=== PATIENT | male | born 1985 | race Caucasian/White ===

== ENCOUNTER 2017-04-03 19:35 | Emergency (ER) | payer OTHER ==
[~2017-04-03] VITALS: Ht 185.4 cm; Wt 81.0 kg
[2017-04-03 19:50] VITALS: BP 128/81; PULSE 109; RESP 16; O2SAT 97
--- NOTE | 2017-04-03 20:01 | ED.REPORT ---
HPI-Psychiatric Illness Date of Service Apr 03, 2017 ED Provider: Damion Milian MD Pt is a 31 y/o male w/ no known past medical or psychiatric history history presenting to the ED due to auditory hallucinations which has been occurring for 5 years. He apparently does not have an official diagnosis of bipolar and apparently "schizophrenia was ruled out due to a normal brain scan". He previously took psych medications but chooses to not take them because of side effects. In the past he has tried Abilify, Geodon, Risperdal, Ritalin, and Adderall. He came in today because he was experiencing auditory hallucinations telling him "bad things" which have been occurring somewhat constantly each day. Pt denies any recent drug or alcohol use. He has had fleeting vague thoughts of suicide and believes he would be safe if he went home because he is around good people. He states that he has never attempted suicide nor does he have any plan to do this. His main goal today is to speak to a professional and obtain resources. He states that he shouldn't be admitted to the hospital but would like to meet with a counselor. Nursing Notes Stated Complaint: HALLUCINATIONS Chief Complaint: Psychiatric Complaint Nursing Notes Reviewed: Yes Allergies: Coded Allergies: risperidone (Verified Allergy, Severe, SI, uncomfortable in skin, lung infections, vomiting, 04/03/17) ziprasidone (Verified Allergy, Intermediate, had to will myself to breath , 04/03/17) General Time Seen by MD: 19:59 Chief Complaint Hallucinations, auditory Hx Obtained From: Patient Arrived By: Walk-in Onset Occurred: More than a week ago... (>6 months) Symptom Duration: Intermittent Progression Since Onset: Intermittent Severity: Current: No pain currently Severity: Maximum: No pain Similar Sx Previous: Yes Risk-Psychiatric Illness Suicide Risk Stratification RF Statements: Risk factors reviewed Past Medical History Past Medical History Unknown psych history Past Surgical History None reported Smoking History Unknown if Ever Smoker Social History Alcohol Use: Denies alcohol use Drug Use: Denies drug use Ambulatory Status Independent Review of Systems Psychiatric: Reports: Hallucinations, auditory, Stress, Suicidal ideation, Denies: Homicidal ideation Complete sys rev & neg: except as marked. Physical Exam Initial Vital Signs Vital Signs (First) Date Time Temp Pulse Resp B/P Pulse Ox O2 Delivery O2 Flow Rate FiO2 04/03/17 19:50 36.7 109 16 128/81 97 Room Air Initial VS: Reviewed Head / Eyes: Atraumatic, Normocephalic, PERRL ENT: Mucous membranes moist, Conjunctiva normal, No scleral icterus Neck: Supple, Full range of motion Respiratory: Breath sounds normal, Clear to auscultation, No respiratory distress Cardiovascular: Regular rate & rhythm, Heart sounds normal, Intact distal pulses Abdomen / GI: Soft, Non-tender Extremities: Vascular intact, Neuro intact, No swelling Skin: Warm, Dry, No cyanosis General/Constitutional: Awake, Alert, No acute distress, Well appearing, Cooperative, Not toxic appearing Appearance / Presentation: Positive: Hygiene poor Neurologic: Oriented X3, Speech NL, No motor deficits, Memory NL Psychiatric: Affect NL, Mood NL, Not suicidal, Not homicidal, No hallucinations Interpretation & Diagnostics Lab Results Interpretation Result Diagram: 04/03/17204904/03/172049 Test 04/03/17 20:50 04/03/17 20:57 White Blood Count 8.7th/mm3 (3.8-10.1) Red Blood Count 5.13mil/mm3 (4.40-5.80) Hemoglobin 16.4g/dL (13.8-17.2) Hematocrit 45.1% (41.0-50.0) Mean Corpuscular Volume 87.9fL (81-100) Mean Corpuscular Hemoglobin 32.0pg (27.0-35.0) Mean Corpuscular Hemoglobin Concent 36.4% (32.0-37.0) Red Cell Distribution Width 12.0% (12.3-15.4) Platelet Count 223bil/L (150-400) Neutrophils (%) (Auto) 49.9% (40-74) Lymphocytes (%) (Auto) 32.7% (14-46) Monocytes (%) (Auto) 9.7% (4-12) Eosinophils (%) (Auto) 6.7% (0-5) Basophils (%) (Auto) 0.9% (0-3) Sodium Level 139mEq/L (134-144) Potassium Level 4.0mEq/L (3.5-5.2) Chloride Level 100mEq/L (97-108) Carbon Dioxide Level 22mmol/L (18-29) Blood Urea Nitrogen 11mg/dL (6-20) Creatinine 1.06mg/dL (0.76-1.27) Estimat Glomerular Filtration Rate 87mL/min (>59) Glucose Level 128mg/dL (60-99) Calcium Level 9.5mg/dL (8.5-10.1) Total Bilirubin 0.7mg/dL (0.0-1.2) Aspartate Amino Transf (AST/SGOT) 17U/L (0-50) Alanine Aminotransferase (ALT/SGPT) 12U/L (0-44) Alkaline Phosphatase 63U/L (25-150) Total Protein 7.7g/dL (6.4-8.4) Albumin 4.8g/dL (3.4-5.0) Thyroid Stimulating Hormone (TSH) 0.935uIU/mL (0.450-4.500) Hold Kaur Top Tube Received (Received) Re-Eval/Medical Decision Med Decision/Clinical Course Pt is a 31 y/o male w/ no known past medical or psychiatric history history presenting to the ED due to auditory hallucinations which has been occurring for 5 years. He apparently does not have an official diagnosis of bipolar and apparently "schizophrenia was ruled out due to a normal brain scan". He previously took psych medications but chooses to not take them because of side effects. In the past he has tried Abilify, Geodon, Risperdal, Ritalin, and Adderall. He came in today because he was experiencing auditory hallucinations telling him "bad things" which have been occurring somewhat constantly each day. Pt denies any recent drug or alcohol use. He has had fleeting vague thoughts of suicide and believes he would be safe if he went home because he is around good people. He states that he has never attempted suicide nor does he have any plan to do this. His main goal today is to speak to a professional and obtain resources. He states that he shouldn't be admitted to the hospital but would like to meet with a counselor. Here in the emergency department the patient is afebrile, hemodynamically stable and in no apparent distress. Examination as above. Laboratory studies notable as below: Breathalyzer: 0 Urine tox screen: negative CBC: unremarkable CMP: unremarkable TSH within normal limits At this time there are no signs of medical etiology of the patient's presentation today. He is linear/organized and in no apparent distress. While he reports auditory hallucinations he does not appear to be responding to external stimuli. He denies any suicidal or homicidal plan/intent. While he reports that he has occasional fleeting suicidal thoughts that this is his baseline and he would never act upon these. Patient was discussed with our emergency department social science instructor Aliza Rosado, however she is too busy to evaluate the patient during her shift. I updated the patient as to the situation and he does not desire to remain in the emergency department until the morning to be evaluated. He is able to contract for safety. He has been provided with outpatient resources and will follow-up with these. He will return to the emergency room right away should he feel that he is having a medical or psychiatric emergency or if he has any thoughts of harming himself or others. Prior to discharge follow-up and return precautions were reviewed in detail with the patient who verbalized understanding and agreement with the plan. The patient was discharged in stable condition. Re-Evaluation/Progress : Time of Eval: 21:40 )( Re-Eval Psychiatric: No danger to self, No danger to others, No suicidal ideation, No homicidal ideation Re-Evaluation/Progress Note: Pt rechecked. Informed pt of plan for treatment. Pt understands and agrees with plan for treatment. F/U instructions and RTER warnings given. All questions addressed. Counseled Regarding: Diagnosis, Lab results, Need for follow-up, When/why to return to ED Discharge & Departure Impression: Primary Impression: Auditory hallucinations Additional Impressions: Suicidal ideation Anxiety )( Condition at Discharge: No danger to self, No danger to others, No suicidal ideation, No homicidal ideation Disposition: Home Discharge Condition All VS Reviewed: Yes Condition: Stable Patient Instructions: Psychiatric Hallucinations (ED) Additional Instructions: Thank you for seeking care at the emergency room. You were seen today because you have been hearing voices. Please follow up with the resources that were provided by our social science instructor. You should follow-up with your primary doctor in the next week. If at any time you have thoughts of harming herself/others, if you feel unsafe, he feel that you are having a medical or psychiatric emergency you should come to the emergency room or call 911. You should return to the ED immediately if you develop fevers, vomiting, cough, shortness of breath, chest pain, lightheadedness, weakness or any other concerning signs or symptoms. Thank you for letting us partake in your care today. Referrals: [facility] Scribe Attestation Portions of this note were transcribed by James Palafox. I, Dr. Milian, personally performed the history, physical exam and medical decision-making; I reviewed and confirmed the accuracy of the information in the transcribed note. Signed by Ramana Castaneda, 04/03/172029 Damion Milian MD Apr 03, 2017 20:01 JAMES PALAFOX Apr 03, 2017 20:29
[2017-04-03 20:59] LABS: BASOPHILS % (AUTO) 0.9 % (0-3); EOSINOPHILS % (AUTO) 6.7 % (0-5); MONOCYTES % (AUTO) 9.7 % (4-12); Mean Corpuscular Volume 87.9 fL (81-100); NEUTROPHILS % (AUTO) 49.9 % (40-74); Platelet Count 223 bil/L (150-400)
[2017-04-03 21:44] VITALS: BP 131/76; PULSE 101; RESP 20; O2SAT 96
[2017-04-03 22:02] VITALS: BP 131/76; PULSE 101; RESP 20; O2SAT 96
== END 2017-04-03 22:02 | disposition home or self-care (01) ==
LOC: SED 19:35
DX: R44.0 Auditory hallucinations (principal); R45.851 Suicidal ideations; F41.9 Anxiety disorder, unspecified; Z88.8 Allergy status to other drugs, medicaments and biological substances